=== PATIENT | female | born 1935 | race Caucasian/White ===

== ENCOUNTER 2025-08-26 11:00 | Emergency (ER) | payer MEDICARE, OTHER ==
[~2025-08-26] VITALS: Ht 162.6 cm; Wt 63.3 kg
--- NOTE | ~2025-08-26 | EKG ---
[facility] [address] [place], [place] [address] Draft EK completed, results pending confirmation PATIENT NAME: ALVAREZ DE ANDA Electrocardiogram DATE OF : [birth year] PHYSICIAN: PRELIMINARY REPORT #: [id number] REPORT IS CONFIDENTIAL AND NOT TO BE RELEASED WITHOUT AUTHORIZATION
[2025-08-26 11:29] LABS: BASOPHILS 0.3 % (0.1-1.2); EOSINOPHILS 0.1 % (0.7-5.8); LYMPHOCYTES 12.5 % (19.3-51.7); MCH 28.9 PG (25.6-32.2); MCHC 32.8 g/dL (32.2-35.5); MCV 88.2 fL (79.4-94.8); MONOCYTES 7.2 % (4.7-12.5); NEUTROPHILS 79.5 % (34.0-71.1); RBC 4.57 M/uL (3.93-5.22)
[2025-08-26] MEDS ORDERED: NITROGLYCERIN 0.4 MG SUBL SL PRN (11:30)
[2025-08-26] MEDS ORDERED: BAYER CHEWABLE81 MG PO (11:32)
[2025-08-26] MEDS ORDERED: B-COMPLEX WITH1 EAC2 PO (11:32)
[2025-08-26] MEDS ORDERED: ASCORBIC ACID500 M3 PO (11:32)
[2025-08-26] MEDS ORDERED: BUMETANIDE0.5 MG PO (11:33)
[2025-08-26] MEDS ORDERED: GLIMEPIRIDE1 MG PO (11:33)
[2025-08-26] MEDS ORDERED: KLOR-CON 1010 MEQ PO (11:34)
[2025-08-26] MEDS ORDERED: LOSARTAN POTASS25 MG PO (11:34)
[2025-08-26] MEDS ORDERED: THERA-M CAPLET1 EACH PO (11:34)
[2025-08-26] MEDS ORDERED: SPIRONOLACTONE25 MG PO (11:35)
[2025-08-26 11:57] LABS: ALT (SGPT) 106.0 U/L (14-59); AST (SGOT) 40.0 U/L (15-37); GLOMERULAR FILTRATION RATE,EST 45.0 mL/min (>60); PROTEIN, TOTAL 7.4 g/dL (6.4-8.2); UREA NITROGEN 43.0 mg/dL (7-18)
[2025-08-26 12:54] LABS: BLOOD/HGB, URINE NEGATIVE (Negative); KETONE, URINE TRACE (Negative); LEUK ESTERASE, URINE NEGATIVE (negative); NITRITE, URINE NEGATIVE (negative)
--- OUTSIDE RECORDS SUMMARY | 2025-08-26 13:30 | XMS ---
PreManage Notification: ALVAREZ DE ANDA [employer] Account Executive Events No recent Security Events currently on file CRITERIA MET - 6 ED Visits in 6 Months - [facility] - 2 Visits in [address] [facility] - 3 Facilities in 90 Days CARE PROVIDERS ZEINAB PADILLA Nurse Practitioner: Family Current PHONE: [phone] JOSE THAKKAR Nurse Practitioner: [facility] PHONE: [phone] MARTIN CARDOSO Physician [employer] [facility] [employer] Cynthia PATTON PHONE: [phone] FLETCHER CHAPMAN Nurse Practitioner: [facility] PHONE: [phone] DORYS OLCO Internal Medicine Current PHONE: Unknown Elvira has no Care Guidelines for this patient. EAga VISIT COUNT (12 MO.) 6 Perry Mcgowan ([facility]) 1 GABRIEL Rocha [facility] TOTAL 8 NOTE: Visits indicate total known visits. ED/UCC VISIT TRACKING (12 MO.) 08/26/2025 11:01 GABRIEL Gillis TYPE: Emergency COMPLAINT: - CHEST PAIN 08/20/2025 03:13 [facility] TYPE: Emergency COMPLAINT: - - Perry Champion DIAGNOSES: - Chronic ischemic heart disease, unspecified - Chest Pain 08/19/2025 20:16 [facility] [place] [place] ([facility]) TYPE: Emergency DIAGNOSES: - Non-ST elevation (NSTEMI) myocardial infarction - Other specified abnormal findings of blood chemistry - Unspecified atrial fibrillation - Urinary tract infection, site not specified - Shortness of Breath 07/06/2025 20:26 Perry [facility]ERRER[facility]) TYPE: Emergency DIAGNOSES: - Contusion of right hip, initial encounter - Contusion of unspecified shoulder, initial encounter - Fall on same level from slipping, tripping and stumbling without subsequent striking against object, initial encounter - Fall 06/21/2025 14:27 [facility] [place] ([facility]) TYPE: Emergency DIAGNOSES: - Acute on chronic systolic (congestive) heart failure - Followup Medical Problem - Shortness of Breath - weakness, shortness of breath 06/08/2025 13:03 Perry [facility] [place] ([facility]) TYPE: Emergency DIAGNOSES: - Acute cystitis without hematuria - Allergic Reaction - Followup Medical Problem 06/02/2025 10:10 Perry [facility] [place] ([facility]) TYPE: Emergency DIAGNOSES: - Heart failure, unspecified - Chest Pain - Followup Medical Problem - Shortness of Breath 12/22/2024 11:56 Perry [facility] [place] ([facility]) TYPE: Emergency DIAGNOSES: - Shortness of breath - Followup Medical Problem - Shortness of Breath - Shortness of Breath, Elevated BP INPATIENT VISIT TRACKING (12 MO.) 08/20/2025 03:17 [facility] TYPE: General Medicine COMPLAINT: - VAISHALI - Perry Ferrell Tx DIAGNOSES: - Chronic ischemic heart disease, unspecified - Other specified abnormal findings of blood chemistry [email or web address]
[2025-08-26 15:32] VITALS: BP 168/77
== END 2025-08-26 15:55 | disposition home or self-care (01) ==
LOC: ED 11:00
PROVIDERS: Emergency Medicine
DX: R74.8 Abnormal levels of other serum enzymes (principal); E11.9 Type 2 diabetes mellitus without complications; I11.0 Hypertensive heart disease with heart failure; I50.30 Unspecified diastolic (congestive) heart failure; E78.5 Hyperlipidemia, unspecified; Z79.899 Other long term (current) drug therapy; Z79.82 Long term (current) use of aspirin; Z91.041 Radiographic dye allergy status; Z88.6 Allergy status to analgesic agent; Z88.8 Allergy status to other drugs, medicaments and biological substances; Z88.1 Allergy status to other antibiotic agents
CPT/HCPCS: 36415; 71045; 80053; 81003; 83735; 84484; 85025; 93005; 93010; 99285-25